=== PATIENT | female | born 1960 | race Caucasian/White ===

== ENCOUNTER 2021-10-30 04:22 | Day surgery (SDC) | payer BC, OTHER ==
[2021-10-26 12:50] VITALS: BMI 27.6
[2021-10-30] MEDS ORDERED: MIDAZOLAM HCL 2 MG/2 ML SINGLE DOSE VIAL ONE (10:31)
[2021-10-30] MEDS ORDERED: DEXAMETHASONE SOD PHOSPHATE 4 MG/1 ML VIAL ONE ×2 (10:31→12:13)
[2021-10-30] MEDS ORDERED: LIDOCAINE HCL/PF 2% SDV 5ML VIAL ONE (10:31)
[2021-10-30] MEDS ORDERED: PROPOFOL 20 ML ONE (10:31)
[2021-10-30] MEDS ORDERED: ROCURONIUM BROMIDE 50 MG/5 ML SYRINGE ONE (10:31)
[2021-10-30] MEDS ORDERED: VANCOMYCIN 1,000 MG VIAL (RESTRICTED TO ID ONLY) IVPB ONE (12:00)
[2021-10-30] MEDS ORDERED: NEOSTIGMINE METHYLSULFATE 0.5 MG/ML - 10 ML MDV ONE (13:00)
[2021-10-30] MEDS ORDERED: GLYCOPYRROLATE 0.2 MG/1 ML VIAL ONE (13:00)
[2021-10-30] MEDS ORDERED: BUPIVACAINE HCL/PF 0.5% (5 MG/ML) 30 ML VIAL IJ ONE (13:02)
[2021-10-30] MEDS ORDERED: BUPIVACAINE HCL/PF 0.5% (5MG/ML) 10 ML VIAL ONE (13:05)
[2021-10-30] MEDS ORDERED: ONDANSETRON 4 MG/2 ML VIAL IVPUSH PRN (13:20)
[2021-10-30] MEDS ORDERED: oxyCODONE HCL 5 MG TABLET PO PRN ×2 (13:20)
[2021-10-30] MEDS ORDERED: ONDANSETRON 4 MG/2 ML VIAL ONE (13:22)
[2021-10-30] MEDS ORDERED: ONDANSETRON 4 MG/2 ML VIAL IVPUSH ONE (13:24)
[2021-10-30] MEDS ORDERED: LACTATED RINGERS SOLUTION 1,000 ML IV SCH (13:30)
[2021-10-30 15:27] VITALS: BP 125/69; PULSE 71; TEMP 98.7
== END 2021-10-30 17:00 | disposition home or self-care (01) ==
LOC: JASU-SURG 04:22
PROVIDERS: ATTEND Obstetrics & Gynecology
PROC: 0UT74ZZ Resection of Bilateral Fallopian Tubes, Percutaneous Endoscopic Approach (ICD-10-PCS; principal; 2021-10-30 10:00)
PROC: 0UDB7ZX Extraction of Endometrium, Via Natural or Artificial Opening, Diagnostic (ICD-10-PCS; 2021-10-30 10:00)
DX: N83.8 Other noninflammatory disorders of ovary, fallopian tube and broad ligament (principal); N85.00 Endometrial hyperplasia, unspecified; Z80.8 Family history of malignant neoplasm of other organs or systems
CPT/HCPCS: 88302-TC; 88305-TC; 94760

== ENCOUNTER 2022-03-16 10:16 | Observation (INO) | payer BC, OTHER ==
[2022-03-16] MEDS ORDERED: SODIUM CHLORIDE 0.9% 500 ML INFUS.BAG IV ONE (10:33)
[2022-03-16] MEDS ORDERED: ONDANSETRON 4 MG/2 ML VIAL IVPUSH ONE ×2 (10:33→14:07)
[2022-03-16] MEDS ORDERED: ACETAMINOPHEN 1000 MG/100 ML BAG IVPB ONE (10:33)
[2022-03-16] MEDS ORDERED: ONDANSETRON 4 MG/2 ML VIAL ONE ×2 (10:46→14:08)
[2022-03-16] MEDS ORDERED: ACETAMINOPHEN INJECTION 100 ML IVPB ONE ×3 (10:46→21:28)
[2022-03-16] MEDS ORDERED: KETOROLAC TROMETHAMINE 15 MG/ML VIAL IVPUSH ONE (10:49)
[2022-03-16 11:50] LABS: BASO % 0.5 % (0-2.0); EOS % 0.2 % (0-4.5); HEMATOCRIT 38.7 % (32.4-45.2); HEMOGLOBIN 13.1 GM/dL (10.7-15.3); LYMPH % 7.2 % (8-40); MCH 33.4 pg (25.7-33.7); MCHC 33.9 g/dl (32.0-36.0); MEAN CELL VOLUME 98.5 fl (80-96); MEAN PLT VOLUME 9.2 fl (7.5-11.1); MONO % 3.6 % (3.8-10.2); NEUT % 88.5 % (42.8-82.8); PLATELET COUNT 181 10^3/uL (134-434); RBC 3.93 M/mm3 (3.60-5.2); RDW 12.9 % (11.6-15.6); WHITE BLOOD COUNT 6.9 K/mm3 (4.0-10.0)
[2022-03-16 12:18] LABS: BLOOD UREA NITROGEN 15.6 mg/dL (7-18); CALCIUM 8.6 mg/dL (8.5-10.1)
[2022-03-16 12:19] LABS: ALBUMIN 3.2 g/dl (3.4-5.0); MAGNESIUM 2.1 mg/dL (1.8-2.4)
[2022-03-16 12:21] LABS: CREATININE 0.9 mg/dL (0.55-1.3)
[2022-03-16 12:23] LABS: EPI CELLS 8 /uL (0-25.1); HYALINE CASTS 0 /uL (0-3.1); PH,URINE 7.5 (5.0-8.0); URINE APPEARANCE TURBID; URINE BACTERIA 10 /uL (0-1359); URINE BILIRUBIN NEGATIVE (NEGATIVE); URINE COLOR YELLOW; URINE GLUCOSE (UA) NEGATIVE (NEGATIVE); URINE KETONE NEGATIVE (NEGATIVE); URINE LEUK ESTERASE NEGATIVE (NEGATIVE); URINE NITRITE NEGATIVE (NEGATIVE); URINE PROTEIN TRACE (NEGATIVE); URINE RBC 2488 /uL (0-23.9); URINE UROBILINOGEN 0.2 mg/dL (0.2-1.0); URINE WBC 6 /uL (0-25.8)
[2022-03-16 12:23] LABS: BILIRUBIN,TOTAL 0.3 mg/dL (0.2-1)
[2022-03-16] MEDS ORDERED: morphine CARPU-JECT 4 MG/1 ML DISP.SYRIN IVPUSH ONE (13:58)
[2022-03-16] MEDS ORDERED: morphine SULFATE 4 MG/ML VIAL ONE (14:08)
[2022-03-16 14:29] VITALS: RESP 18
[2022-03-16] MEDS ORDERED: LACTATED RINGERS SOLUTION 1,000 ML IV SCH (15:15)
[2022-03-16] MEDS ORDERED: SODIUM POLYSTYRENE SULFONATE 15 GM/60 ML BOTTLE PO ONE (15:57)
[2022-03-16] MEDS ORDERED: SODIUM POLYSTYRENE SULFONATE 15 GM/60 ML BOTTLE ONE (16:09)
[2022-03-16] MEDS: ACETAMINOPHEN 1000 MG/100 ML BAG IVPB PRN (16:53)
[2022-03-16 20:34] LABS: BLOOD UREA NITROGEN 15.3 mg/dL (7-18); CALCIUM 8.1 mg/dL (8.5-10.1)
[2022-03-16 20:38] LABS: CREATININE 1.3 mg/dL (0.55-1.3)
[2022-03-16] MEDS: HYDROXYCHLOROQUINE SO4 200 MG TABLET (FP) PO SCH ×2 (23:05→23:57)
[2022-03-17 03:00] VITALS: BMI 28.0
[2022-03-17] MEDS ORDERED: TAMSULOSIN HCL 0.4 MG CAP PO SCH (08:30)
[2022-03-17] MEDS: HYDROXYCHLOROQUINE SO4 200 MG TABLET (FP) PO SCH (09:09)
[2022-03-17] MEDS: ACETAMINOPHEN 1000 MG/100 ML BAG IVPB PRN (09:16)
[2022-03-17] MEDS ORDERED: ESCITALOPRAM OXALATE 10 MG TABLET PO SCH (10:00)
[2022-03-17] MEDS ORDERED: LOSARTAN POTASSIUM 25 MG TABLET PO SCH (10:00)
[2022-03-17 11:34] LABS: BASO % 0.5 % (0-2.0); EOS % 1.1 % (0-4.5); HEMOGLOBIN 11.7 GM/dL (10.7-15.3); LYMPH % 28.1 % (8-40); MCH 32.9 pg (25.7-33.7); MCHC 33.4 g/dl (32.0-36.0); MEAN CELL VOLUME 98.4 fl (80-96); MEAN PLT VOLUME 9.8 fl (7.5-11.1); MONO % 8.3 % (3.8-10.2); PLATELET COUNT 170 10^3/uL (134-434); RBC 3.56 M/mm3 (3.60-5.2); WHITE BLOOD COUNT 6.1 K/mm3 (4.0-10.0)
[2022-03-17 11:39] LABS: CALCIUM 8.7 mg/dL (8.5-10.1)
[2022-03-17 11:40] LABS: BLOOD UREA NITROGEN 11.8 mg/dL (7-18); MAGNESIUM 2.2 mg/dL (1.8-2.4)
[2022-03-17 11:42] LABS: PHOSPHOROUS 3.2 mg/dL (2.5-4.9)
[2022-03-17 11:43] LABS: CREATININE 0.9 mg/dL (0.55-1.3); TOT PROT 5.1 g/dl (6.4-8.2)
[2022-03-17 11:44] LABS: BILIRUBIN,TOTAL 0.7 mg/dL (0.2-1)
[2022-03-17 14:43] VITALS: BP 126/86; PULSE 64; TEMP 97.8
== END 2022-03-17 18:20 | disposition home or self-care (01) ==
LOC: JER 10:16 → UNDOADMOB 14:24 → JERBED 14:24 → INTOOBSV 14:24 → JERBED 15:05 → J6S 23:20 → UNDODISOB 03-17 18:20
PROVIDERS: ADMIT Internal Medicine; ATTEND Internal Medicine
PROC: 3E033NZ Introduction of Analgesics, Hypnotics, Sedatives into Peripheral Vein, Percutaneous Approach (ICD-10-PCS; principal; 2022-03-16)
PROC: 3E03329 Introduction of Other Anti-infective into Peripheral Vein, Percutaneous Approach (ICD-10-PCS; 2022-03-16)
PROC: 3E0337Z Introduction of Electrolytic and Water Balance Substance into Peripheral Vein, Percutaneous Approach (ICD-10-PCS; 2022-03-16)
DX: K83.8 Other specified diseases of biliary tract (principal); K57.90 Diverticulosis of intestine, part unspecified, without perforation or abscess without bleeding; N20.0 Calculus of kidney; J45.909 Unspecified asthma, uncomplicated; Z98.84 Bariatric surgery status; M32.9 Systemic lupus erythematosus, unspecified; Z90.3 Acquired absence of stomach [part of]; G43.909 Migraine, unspecified, not intractable, without status migrainosus; Z90.49 Acquired absence of other specified parts of digestive tract; R09.81 Nasal congestion; M41.9 Scoliosis, unspecified; R09.89 Other specified symptoms and signs involving the circulatory and respiratory systems; R31.9 Hematuria, unspecified; Z88.8 Allergy status to other drugs, medicaments and biological substances; Z91.018 Allergy to other foods
CPT/HCPCS: 36415; 74177-TC; 74181-TC; 76830-TC; 80048; 80053; 81003; 83605; 83690; 83735; 84100; 85025; 86140; 87086; 93005; 93010; 96361; 96365; 96374; 96375; 96376; 99285-25; C9803-CS; G0378; Q9967; U0003; U0005

== ENCOUNTER 2022-03-27 13:16 | Emergency (ER) | payer BC, OTHER ==
[2022-03-27 13:40] VITALS: BP 119/68; PULSE 69; RESP 18; TEMP 97.7; BMI 27.9
[2022-03-27] MEDS ORDERED: ACETAMINOPHEN 1000 MG/100 ML BAG IVPB ONE (15:33)
[2022-03-27] MEDS ORDERED: SODIUM CHLORIDE 0.9% 500 ML INFUS.BAG IV ONE (15:33)
[2022-03-27] MEDS ORDERED: ACETAMINOPHEN INJECTION 100 ML IVPB ONE (15:43)
[2022-03-27] MEDS ORDERED: ONDANSETRON 4 MG/2 ML VIAL IVPB ONE (15:47)
[2022-03-27] MEDS ORDERED: ONDANSETRON 4 MG/2 ML VIAL ONE (15:51)
[2022-03-27 16:24] LABS: PH,URINE 6.5 (5.0-8.0); URINE APPEARANCE TURBID; URINE BILIRUBIN NEGATIVE (NEGATIVE); URINE COLOR YELLOW; URINE GLUCOSE (UA) NEGATIVE (NEGATIVE); URINE KETONE NEGATIVE (NEGATIVE); URINE LEUK ESTERASE NEGATIVE (NEGATIVE); URINE NITRITE NEGATIVE (NEGATIVE); URINE PROTEIN NEGATIVE (NEGATIVE); URINE UROBILINOGEN 0.2 mg/dL (0.2-1.0)
[2022-03-27 16:26] LABS: BASO % 0.7 % (0-2.0); EOS % 1.2 % (0-4.5); HEMATOCRIT 40.5 % (32.4-45.2); HEMOGLOBIN 13.4 GM/dL (10.7-15.3); LYMPH % 23.7 % (8-40); MCH 32.8 pg (25.7-33.7); MCHC 33.1 g/dl (32.0-36.0); MEAN CELL VOLUME 99.1 fl (80-96); MEAN PLT VOLUME 9.1 fl (7.5-11.1); NEUT % 68.4 % (42.8-82.8); PLATELET COUNT 241 10^3/uL (134-434); RBC 4.08 M/mm3 (3.60-5.2); RDW 13.1 % (11.6-15.6); WHITE BLOOD COUNT 6.1 K/mm3 (4.0-10.0)
[2022-03-27 16:46] LABS: ALBUMIN 3.6 g/dl (3.4-5.0); BLOOD UREA NITROGEN 13.2 mg/dL (7-18); CALCIUM 9.3 mg/dL (8.5-10.1)
[2022-03-27 16:49] LABS: CREATININE 0.7 mg/dL (0.55-1.3)
[2022-03-27 16:51] LABS: BILIRUBIN,TOTAL 0.2 mg/dL (0.2-1); TOT PROT 6.2 g/dl (6.4-8.2)
== END 2022-03-27 18:06 | disposition home or self-care (01) ==
LOC: JER 13:16
PROC: 3E033GC Introduction of Other Therapeutic Substance into Peripheral Vein, Percutaneous Approach (ICD-10-PCS; principal; 2022-03-27)
DX: R10.9 Unspecified abdominal pain (principal); R11.0 Nausea
CPT/HCPCS: 0241U-QW; 36415; 76775-TC; 80053; 81003; 83605; 83690; 85025; 87086; 99284-25

== ENCOUNTER 2023-04-26 07:56 | Day surgery (SDC) | payer BC, OTHER ==
[2023-04-18 12:44] VITALS: BMI 28.1
[2023-04-26 10:03] VITALS: TEMP 97.4
[2023-04-26 10:42] VITALS: BP 131/68; PULSE 52; RESP 17
== END 2023-04-26 10:35 | disposition home or self-care (01) ==
LOC: FASU-ENDO 07:56
PROVIDERS: ATTEND Internal Medicine Gastroenterology
PROC: 0DB68ZX Excision of Stomach, Via Natural or Artificial Opening Endoscopic, Diagnostic (ICD-10-PCS; 2023-04-26)
PROC: 0DB48ZX Excision of Esophagogastric Junction, Via Natural or Artificial Opening Endoscopic, Diagnostic (ICD-10-PCS; 2023-04-26)
PROC: 0DB98ZX Excision of Duodenum, Via Natural or Artificial Opening Endoscopic, Diagnostic (ICD-10-PCS; principal; 2023-04-26 09:46)
DX: K29.50 Unspecified chronic gastritis without bleeding (principal); K21.00 Gastro-esophageal reflux disease with esophagitis, without bleeding; R10.13 Epigastric pain; Z98.84 Bariatric surgery status
CPT/HCPCS: 88305-TC; 88342-TC